=== PATIENT | male | born 1990 | race Caucasian/White ===

== ENCOUNTER 2018-08-11 16:46 | Inpatient (IN) ==
[2018-08-11] MEDS ORDERED: Acetaminophen 325 MG Tablet PO PRN (19:59)
[2018-08-11] MEDS ORDERED: Aluminum/Magnesium/Simethacone Susp 30 ML UDC PO PRN (19:59)
[2018-08-11] MEDS ORDERED: Haloperidol Inj 5 MG/ML Ampul IV.PUSH PRN (22:26)
[2018-08-11] MEDS: LORazepam 1 MG Tablet PO PRN (22:37)
--- NOTE | 2018-08-12 08:23 | P.HPPSY ---
Provisional Diagnosis Admission Date: August 11, 2018 19:45 [place] I.: Major depressive disorder, unspecified anxiety disorder, cocaine use disorder, alcohol use disorder Competence Certification of Person's Competence To Provide Express and Informed Consent I have personally examined Percy Alfaro, a person being served at [facility] on, August 12, 2018 0813. Express and informed consent means consent voluntarily given in writing, by a competent person, after sufficient explanation and disclosure of the subject matter involved to enable the person to make a knowing and willful decision without any element of force, fraud, deceit, duress, or other form of constraint or coercion. This person is 18 years of age or older, is not now known to be incompetent to consent to treatment with a guardian advocate, and does not have a health care surrogate or proxy currently making medical treatment decisions. I have found this person to be one of the following: [xxx] Competent to provide express and informed consent, as defined above, for voluntary admission to this facility and is competent to provide express and informed consent for treatment. He/she has the consistent capacity to make well reasoned, willful, and knowing decisions concerning his or her medical or mental health treatment. The person fully and consistently understands the purpose of the admission for examination/placement and is fully capable of personally exercising all rights assured under [place] Incompetent to provide express and informed consent to voluntary admission, and this is incompetent to provide express and informed consent to treatment. The person must be transferred to involuntary status and a petition for a guardian advocate filed with the Circuit Court. [] Refusing to provide express and informed consent to voluntary admission but is competent to provide express and informed consent for treatment. The person must be discharged or transferred to involuntary status. Form shall be completed within 24 hours of a person's arrival at the receiving facility and filed in the clinical record of each person: 1. Admitted on a voluntary basis 2. Permitted to provide express and informed consent to his/her own treatment 3. Allowed to transfer from involuntary to voluntary status 4. Prior to permitting a person to consent to his or her own treatment after having been previously found incompetent to consent to treatment. History of Present Illness Capacity: Has capacity History of Present Illness: Patient is a 27-year-old man, single, domiciled with children and other family members, employed, with a past psychiatric history of depression and anxiety, one previous psychiatric admissions, one previous suicide attempt, with a substance use history significant for cocaine and alcohol use, who was transferred from [facility] under [place] act due to suicide ideation with plan to overdose which patient was admitted to the inpatient psychiatry for further evaluation and management. As per chart patient had endorsed feeling depressed for the past 7 days and had previous visit to the ER where she was prescribed trazodone and discharged but later presented to the ER brought in by a friend due to suicide ideation in the context of recent suicide attempt via cutting 2 days prior which patient was then put under L[place]ig[place] act and transferred to this facility. Patient was found sitting in hospital bed noted B , cooperative. Patient states he had been feeling depressed for the past 2 weeks and had gone to the ED for help and was discharged on trazodone 50 mg p.o. at bedtime and stated it helped for 2 days but then had continued depressed mood as well as difficulty with sleep along with decreased concentration, feeling worsening of depression, feeling helpless and hopeless and suicide ideation for several days. He reports having had previous suicide attempt 2 days ago via cutting which patient has superficial cuts to left wrist but denying any manic or psychotic symptoms at this time. Patient states that stressors include having lost support of a close friend after recent argument, feeling stressed at home with financial difficulties he states that his mood has been "horrible" and continues to have suicide ideation at this time along with anxiety related to the stressors. She also reports having occasional paranoid ideation. Family psychiatric history: Unknown family mental illness, denies any suicides in the family Past psychiatric history: Previous psychiatric diagnoses depression anxiety, one prior psychiatric admission 2016 and one previous suicide attempt stated above 2 days ago, denies any history of self-injurious behavior. Denies any history of physical or sexual abuse. No outpatient mental health provider, no previous psychiatric medication trials other than trazodone as stated above. Substance use history: History of cocaine use last use was 4 months ago but previously using daily, alcohol use daily last time being 10 days ago with history of withdrawal symptoms upon cessation of alcohol use. Previous marijuana use last use was 2 weeks ago, history of benzodiazepine abuse last time being 1 year ago. Patient interested in rehabilitation program at this time, denies use of any other drugs. Past medical history: Denies Allergies: NKDA Social history: Single, domiciled with 2 children and family members, unemployed , no background, highest education is GED, no legal history. Patient no longer has access to firearms. - Inpatient Certification I certify that the inpatient services were ordered in accordance with Medicare regulations governing the order. This includes certification that hospital inpatient services are reasonable and necessary and in the case of services not specified as inpatient-only under 42 CFR 419.22(n), that they are appropriately provided as inpatient services in accordance to with the 2-midnight benchmark under 43 CFR 412.3(e) I certify that inpatient psychiatric hospital services are medically necessary. Evaluation and treatment and/or diagnostic testing are expected to improve the patient's condition. The patient needs on a daily basis, active treatment furnished directly by or requiring the supervision of inpatient psychiatric facility personnel. Estimated Total Length of Stay (Days): 7 Plans for Post Hospital Care: Not yet determined Review of Systems All other systems reviewed negative except as stated in HPI PMFSH - History History Provided By: Patient, Medical Record - Tobacco History Second Hand Smoke Exposure: Yes Tobacco Use In Past 30 Days: Yes Smoking Status: Current every day smoker Tobacco Type: Cigarettes - Alcohol History How Often Do You Have a Drink Containing Alcohol: 4 or more times a week - Substance Use History Substance History: Past History - Substance Use Type Crack/Cocaine Type: cocaine Opiates Type: Xanax - Travel History Recent Travel in the [place] Within the Last 8 Weeks: No Recent Travel Out of the Country Within the Last 8 Weeks: No - Immunization History Tetanus Immunization: <5 Years Tetanus Immunization Year if Known: 2016 Hx Influenza Vaccine This Season: No Quality Measures - Psychiatric History Psychological trauma history: Denies Violence risk to others in the last 6 months: Low Violence risk to self in the last 6 months: Elevated due to recent suicide attempt and ongoing suicide ideations. - Substance Abuse History Drug or alcohol use in the past 12 months: See HPI - Patient Strengths Patient's strengths (minimum of 2): Verbal and communicative Medications and Allergies Active Medications: Active Medications Acetaminophen (Tylenol) 650 mg PO Q4H PRN PRN Reason: PAIN 1-5 OR TEMP > 101 Al Hydrox/Mg Hydrox/Simethicone (Mag-Al Plus Susp Liq) 30 ml PO Q6H PRN PRN Reason: DYSPEPSIA Al Hydroxide/Mg Hydroxide (Milk Of Magnesia Liq) 30 ml PO DAILY PRN PRN Reason: CONSTIPATION Bupropion HCl (Wellbutrin Sr) 150 mg PO DAILY RODNEY Buspirone HCl (Buspar) 5 mg PO TID RODNEY Diphenhydramine HCl (Benadryl) 50 mg PO HS PRN PRN Reason: INSOMNIA Diphenhydramine HCl (Benadryl Inj) 50 mg IM HS PRN PRN Reason: INSOMNIA Flumazenil (Romazecon Inj) 0.2 mg IV.PUSH Q1M PRN PRN Reason: OVERSEDATION Haloperidol Lactate (Haldol Inj) 1 mg IV.PUSH Q15M PRN PRN Reason: for severe agitation Hydroxyzine HCl (Atarax) 50 mg PO Q6H PRN PRN Reason: ANXIETY Influenza Virus Vaccine (Fluarix (Quad) Vaccine Inj) 0.5 ml IM .ONCE ONE Stop: 08/12/18 09:01 Lorazepam (Ativan) 1 mg PO Q4H PRN PRN Reason: for CIWA 8-10 Last Admin: 08/11/18 22:37 Dose: 1 mg Lorazepam (Ativan) 2 mg PO Q2H PRN PRN Reason: for CIWA 11-14 Lorazepam (Ativan Inj) 2 mg IV.PUSH Q2H PRN PRN Reason: for CIWA 11-14 Lorazepam (Ativan Inj) 2 mg IV.PUSH Q1H PRN PRN Reason: for CIWA 15-20 Lorazepam (Ativan Inj) 2 mg IV.PUSH Q15M PRN PRN Reason: for CIWA > 20 Lorazepam (Ativan Inj) 1 mg IV.PUSH Q4H PRN PRN Reason: for CIWA 8-10 Nicotine (Habitrol 21 Mg Patch.24 Hr) 1 patch T-DERMAL DAILY [facility] Patch Removal (Remove Old Patch) 1 each T-DERMAL HS [facility] Allergies Allergy/AdvReac Type Severity Reaction Status Date / Time No Known Allergies Allergy Severe Uncoded 11/18/04 19:34 METAL AdvReac Intermediate SKIN Uncoded 11/18/04 21:58 BREAKS OUT Exam Vital signs: Vital Signs 08/11/18 22:08 08/12/18 05:08 Temperature 98.3 F 98.0 F Pulse Rate 76 74 Respiratory Rate 16 16 Blood Pressure 129/68 113/62 Pulse Oximetry 98 99 Intake & Output 08/11/18 08/12/18 08/12/18 18:59 06:59 18:59 Weight 61 kg Other: Weight On Admission 61 kg Narrative: Patient not noted to be in acute distress, no gross motor abnormalities, no signs of tremor or EPS, no psychomotor agitation or retardation. - Constitutional no acute distress, cooperative Mental Status Examination Appearance: Appropriate Consciousness: Alert Orientation: x4 Motor Activity: Normal gait Speech: Unremarkable Language: Adequate Fund of Knowledge: Inadequate Attention and Concentration: Adequate Memory: Unremarkable Mood: Sad, Anxious Affect: Sad, Anxious Thought Process & Associations: Intact, Logical, Linear Thought Content: Appropriate Hallucination Type: None Delusion Type: Paranoid Suicidal Ideation: Yes Suicidal Plan: No Suicidal Intention: No Homicidal Ideation: No Homicidal Plan: No Homicidal Intention: No Insight: Fair Judgment: Impulsive Assessment and Plan - Assessment (1) Major depressive disorder Code(s): F32.9 - Major depressive disorder, single episode, unspecified Status : Acute (2) Anxiety disorder, unspecified Code(s): F41.9 - Anxiety disorder, unspecified Status: Acute (3) Cocaine use disorder Code(s): F14.10 - Cocaine abuse, uncomplicated Status: Acute (4) Alcohol abuse Code(s): F10.10 - Alcohol abuse, uncomplicated Status: Acute - Plan Plan: Estimated LOS: [] days Patient is a 27-year-old man who carries a diagnoses depression, anxiety, cocaine use disorder, alcohol use disorder, one previous psychiatric admission, one previous suicide attempt 2 days ago who was brought in under L[place] act due to recent suicide attempt and admitted to the inpatient psychiatry for further evaluation and management for safety. Patient this time requires inpatient level care for stabilization. Patient agrees to voluntary admission has capacity to consent for treatment. We will start patient on bupropion 150 mg p.o. daily with titration to twice daily if tolerated, buspirone 5 mg p.o. 3 times daily for anxiety, will continue to monitor mood and behavior. Collateral information pending. 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 Encourage patient to participate in groups and activities and maintain personal hygiene have adequate p.o. nutritional intake. Discharge planning a progress. Justification for Continued Inpatient Stay: At risk of further decompensation at lower level care.
[2018-08-12] MEDS ORDERED: Influenza (Quadrivalent) Vaccine 0.5 ML Syringe IM ONE (09:00)
[2018-08-12] MEDS: buPROPion 150 MG 12 HR Tablet PO SCH (10:37)
[2018-08-12 11:09] LABS: Anion Gap 7 meq/L (5-15); Blood Urea Nitrogen 20 mg/dL (7-18); Calcium 8.7 mg/dL (8.5-10.1); Carbon Dioxide 26.9 meq/L (21.0-32.0); Chloride 103 meq/L (98-107); Cholesterol 141 mg/dL (120-200); Glomerular Filtration Rate Greater Than 89 mL/min (>89); Glucose,Random 75 mg/dL (74-106); Potassium 3.7 meq/L (3.5-5.1); Sodium 137 meq/L (136-145); Triglycerides 116 mg/dL (42-150)
[2018-08-12 11:12] LABS: Chol/HDL Ratio 3.56 Ratio; HDL Cholesterol 39.6 mg/dL (40.0-60.0); LDL Cholesterol,Calculated 78 mg/dL (0-99)
[2018-08-13] MEDS: buPROPion 150 MG 12 HR Tablet PO SCH (08:44)
[2018-08-13] MEDS: LORazepam 1 MG Tablet PO PRN (13:12)
--- NOTE | 2018-08-13 17:58 | P.PNPSY ---
Subjective Remarks: Reviewed electronic medical records and discussed case with staff. Follow-up was conducted in the day room with KARO Tomas present. His nurse reports that he still has some depression, anxiety, and negative self talk. The patient reports still endorsing suicidal ideation. Patient states that he "feels good" . And that the suicidal ideations are "still there". He states that he slept on and off last night but his appetite has been better. He reports feeling anxious and denies any side effects from his medications. Mental Status Examination Appearance: Appropriate Consciousness: Alert Orientation: x4 Motor Activity: Normal gait Speech: Unremarkable Language: Adequate Fund of Knowledge: Inadequate Attention and Concentration: Adequate Memory: Unremarkable Mood: Sad, Anxious Affect: Sad, Anxious Thought Process & Associations: Intact, Logical, Linear Thought Content: Appropriate Hallucination Type: None Delusion Type: Paranoid Suicidal Ideation: Yes Suicidal Plan: No Suicidal Intention: No Homicidal Ideation: No Homicidal Plan: No Homicidal Intention: No Insight: Fair Judgment: Impulsive Assessment and Plan - Assessment (1) Major depressive disorder Code(s): F32.9 - Major depressive disorder, single episode, unspecified Status : Acute - Plan Plan: Patient will be reevaluated by the attending psychiatrist. Continue with current treatment plan. Justification for Continued Inpatient Stay: Moving this patient to a less restrictive environment would likely result in decompensation.
[2018-08-14] MEDS: buPROPion 150 MG 12 HR Tablet PO SCH (09:20)
--- NOTE | 2018-08-14 13:50 | P.PNPSY ---
Subjective Remarks: Electronic medical record reviewed and discussed with nursing staff. Patient is sleeping intermittently . He will ask for Benadryl if he is unable to sleep tonight. His appetite is good. He feels that the medications are working. The nursing report reports that he has been more socially and engaging with others . Denies SI/HI. Review of Systems All other systems reviewed negative except as stated in HPI Mental Status Examination Appearance: Appropriate Consciousness: Alert Orientation: x4 Motor Activity: Normal gait Speech: Unremarkable Language: Adequate Fund of Knowledge: Inadequate Attention and Concentration: Adequate Memory: Unremarkable Mood: Sad, Anxious Affect: Sad, Anxious Thought Process & Associations: Intact, Logical, Linear Thought Content: Appropriate Hallucination Type: None Delusion Type: None, Paranoid Suicidal Ideation: No Suicidal Plan: No Suicidal Intention: No Homicidal Ideation: No Homicidal Plan: No Homicidal Intention: No Insight: Fair Judgment: Impulsive Assessment and Plan - Assessment (1) Major depressive disorder Code(s): F32.9 - Major depressive disorder, single episode, unspecified Status : Acute - Plan Plan: Patient will be reevaluated by the attending psychiatrist. Continue with current treatment plan. Justification for Continued Inpatient Stay: Moving patient to a less restrictive environment may result in his decompensation.
[2018-08-14] MEDS: LORazepam 1 MG Tablet PO PRN (22:08)
[2018-08-15 05:56] VITALS: BP 108/66; PULSE 75; RESP 18; TEMP 97.4; O2SAT 98
[2018-08-15] MEDS: buPROPion 150 MG 12 HR Tablet PO SCH (08:47)
--- NOTE | 2018-08-15 13:51 | P.DSPSY ---
Psychiatry Discharge Summary Inpatient Psychiatric care?: Yes Advance Directives: Unknown Reason for Unknown:: Other Mental Health Advance Directive: No Health Care Proxy: No - Admission Admission Date: August 11, 2018 19:45 - Admission Diagnosis (1) Major depressive disorder Code(s): F32.9 - Major depressive disorder, single episode, unspecified (2) Anxiety disorder, unspecified Code(s): F41.9 - Anxiety disorder, unspecified (3) Cocaine use disorder Code(s): F14.10 - Cocaine abuse, uncomplicated Brief History: Patient is a 27-year-old man, single, domiciled with children and other family members, employed, with a past psychiatric history of depression and anxiety, one previous psychiatric admissions, one previous suicide attempt, with a substance use history significant for cocaine and alcohol use, who was transferred from [facility] under [place] act due to suicide ideation with plan to overdose which patient was admitted to the inpatient psychiatry for further evaluation and management. As per chart patient had endorsed feeling depressed for the past 7 days and had previous visit to the ER where she was prescribed trazodone and discharged but later presented to the ER brought in by a friend due to suicide ideation in the context of recent suicide attempt via cutting 2 days prior which patient was then put under [place] act and transferred to this facility. Patient was found sitting in hospital bed noted B , cooperative. Patient states he had been feeling depressed for the past 2 weeks and had gone to the ED for help and was discharged on trazodone 50 mg p.o. at bedtime and stated it helped for 2 days but then had continued depressed mood as well as difficulty with sleep along with decreased concentration, feeling worsening of depression, feeling helpless and hopeless and suicide ideation for several days. He reports having had previous suicide attempt 2 days ago via cutting which patient has superficial cuts to left wrist but denying any manic or psychotic symptoms at this time. Patient states that stressors include having lost support of a close friend after recent argument, feeling stressed at home with financial difficulties he states that his mood has been "horrible" and continues to have suicide ideation at this time along with anxiety related to the stressors. She also reports having occasional paranoid ideation. Family psychiatric history: Unknown family mental illness, denies any suicides in the family Past psychiatric history: Previous psychiatric diagnoses depression anxiety, one prior psychiatric admission 2016 and one previous suicide attempt stated above 2 days ago, denies any history of self-injurious behavior. Denies any history of physical or sexual abuse. No outpatient mental health provider, no previous psychiatric medication trials other than trazodone as stated above. Substance use history: History of cocaine use last use was 4 months ago but previously using daily, alcohol use daily last time being 10 days ago with history of withdrawal symptoms upon cessation of alcohol use. Previous marijuana use last use was 2 weeks ago, history of benzodiazepine abuse last time being 1 year ago. Patient interested in rehabilitation program at this time, denies use of any other drugs. Past medical history: Denies Allergies: NKDA Social history: Single, domiciled with 2 children and family members, unemployed , no background, highest education is GED, no legal history. Patient no longer has access to firearms. Tobacco Use In Past 30 Days: Yes How Often Do You Have a Drink Containing Alcohol: 4 or more times a week Hospital Course: Patient is a 27-year-old man, single, domiciled with children and other family members, employed, with a past psychiatric history of depression and anxiety, one previous psychiatric admissions, one previous suicide attempt, with a substance use history significant for cocaine and alcohol use, who was transferred from [facility] under [place] act due to suicide ideation with plan to overdose which patient was admitted to the inpatient psychiatry for further evaluation and management. Patient was admitted to a locked, inpatient psychiatric unit. Appropriate precautions were in place throughout patient's hospital stay. Patient was seen and examined on the unit by psychiatry. Psychotropic medications were adjusted. There was no evidence of any suicidality or homicidality on the inpatient unit. Patient's mood improved with the benefit of psychopharmacological treatment and had no behavioral disturbance since admission. Patient was noted to have reached stable mood, noted to participate and engage in treatment and interact with staff adequately. Patient noted to be future oriented with plans to continue treatment and outpatient follow-up appointments for continuity of care. Counselor has arranged discharge plan which patient will return back to his residence with his family and continue outpatient follow up. On the day of discharge: Patient seen and examined; chart reviewed. Case discussed with nurse and counselor. No behavioral issues overnight. On my examination today, the patient denies any suicidal homicidal ideation, intent or plan on direct questioning and contracts for safety. Patient denies any perceptional disturbances and no delusional material verbalized today. Patient denies any side effects from medication and has understanding of medication regimen and education. No physical complaints. Suicide and violence risk assessment on day of discharge both suggest lower imminent risk, and the patient's level of function is adequate for plan level of outpatient care. Patient has maximized benefit from this inpatient psychiatric hospital stay and will be discharged with discharge plan as arranged by counselor. Patient advised to return to psychiatric emergency room for any concerning psychiatric symptoms. Patient agrees with plan. - Discharge Discharge Date: 08/15/18 - Discharge Diagnosis (1) Major depressive disorder Code(s): F32.9 - Major depressive disorder, single episode, unspecified Status : Acute (2) Anxiety disorder, unspecified Code(s): F41.9 - Anxiety disorder, unspecified Status: Acute (3) Cocaine use disorder Code(s): F14.10 - Cocaine abuse, uncomplicated Status: Acute (4) Alcohol use disorder Status: Acute Discharge Disposition: Home - Discharge Instructions Discharge Diet: Heart Healthy Diet Activities You Can Perform: Regular- No Restrictions - Discharge Time > 30 minutes Mental Status Examination Appearance: Appropriate Consciousness: Alert Orientation: x4 Motor Activity: Normal gait Speech: Unremarkable Language: Adequate Fund of Knowledge: Inadequate Attention and Concentration: Adequate Memory: Unremarkable Mood: Appropriate Affect: Appropriate Thought Process & Associations: Intact, Logical, Linear Thought Content: Appropriate Hallucination Type: None Delusion Type: None Suicidal Ideation: No Suicidal Plan: No Suicidal Intention: No Homicidal Ideation: No Homicidal Plan: No Homicidal Intention: No Insight: Adequate Judgment: Adequate Discharge/Advance Care Plan - Results Vital Signs: Last Vital Signs Temp 97.4 F L 08/15/18 05:55 Pulse 75 08/15/18 05:55 Resp 18 08/15/18 05:55 BP 108/66 08/15/18 05:55 Pulse Ox 98 08/15/18 05:55 Lab Results: Laboratory Results Hemoglobin A1c 5.0 % (4.3-6.0) 08/12/18 08:53 Triglycerides 116 mg/dL (42-150) 08/12/18 08:53 Cholesterol 141 mg/dL (120-200) 08/12/18 08:53 LDL Cholesterol, Calc 78 mg/dL (0-99) 08/12/18 08:53 HDL Cholesterol 39.6 mg/dL (40.0-60.0) L 08/12/18 08:53 Summary of Procedures: none Pending Results: None - Medications Number of antipsychotic medications at discharge: 0 - Discharge Care Plan Goals to Promote Your Health: * To prevent worsening of your condition and complications * To maintain your health at the optimal level Directions to Meet Your Goals: Take your medications as prescribed Follow your dietary instruction Follow activity as directed Keep your appointments as scheduled Take your immunizations and boosters as scheduled If your symptoms worsen call your PCP, if no PCP go to Urgent Care Center or Emergency Room For 05/04 questions related to your inpatient stay or results of tests pending at discharge, please contact Dr. Rakesh Barksdale MD at Smoking is Dangerous to Your Health. Avoid second hand smoking
--- NOTE | 2018-08-15 14:28 | P.TTN ---
- Patient Problems Problems: 1. Discharge planning 2. Medication compliance 3. Knowledge deficit 4. Lack of coping skills - Progress Toward Goals Provider Present: Dr. Oneal Barksdale Provider Input: Provider reported treatment was started Wednesday08/12/2018. Patient is still being monitored. Psychiatric Counselors Present: Laney Jvaier [facility] Psychiatric Therapist Input: Patient will be discharged home once stabilized. Group Spec/RT/OT/ORTIZ Present: Donna Donovan GPS, Russell Prince OT Clinical Coordinator: Eugenie Stone [facility] - Documentation Teaching Recipient: Patient
== END 2018-08-15 15:05 | disposition home or self-care (01) ==
LOC: H260 19:45
PROVIDERS: ADMIT Student in an Organized Health Care Education/Training Program; ATTEND Student in an Organized Health Care Education/Training Program